=== PATIENT | female | born 1955 | race Caucasian/White ===

== ENCOUNTER 2017-06-03 07:21 | Emergency (ER) | payer OTHER ==
[~2017-06-03] VITALS: Ht 172.7 cm; Wt 99.8 kg
[2017-06-03 08:07] VITALS: BP 127/67
[2017-06-03] MEDS ORDERED: SODIUM CHLORIDE 0.9% 1,000 ML IV ONE ×2 (08:30→09:00)
[2017-06-03] MEDS ORDERED: InsuLIN REG 1unit/0.01ml Soln (100units/ml) IV ONE (08:30)
[2017-06-03] MEDS ORDERED: cefTRIAXone 1GM/50ML D5W 50 ML IV ONE (09:00)
[2017-06-03 09:07] LABS: Basophils # (auto) 0 uL; Basophils % (auto) 0.5 % (0.0-2.0); CONDITION Y; Eosinophils # (auto) 0.2 uL; Eosinophils % (auto) 2.8 % (0.0-7.0); Hemoglobin 14.6 g/dL (12.2-16.2); Lymphocytes # (auto) 2.3 uL; Lymphocytes % (auto) 32.7 % (10.0-50.0); Mean Corpuscular Hemoglobin 31.3 pg (28.0-32.0); Mean Corpuscular Volume 92.2 fL (80.0-100.0); Mean Platelet Volume 9.4 fL (7.4-10.4); Monocytes # (auto) 0.4 uL; Monocytes % (auto) 6.4 % (0.0-12.0); Neutrophils % (auto) 57.6 % (37.0-80.0); Platelet Count (auto) 254 10^3/uL (140-450); Red Cell Distribution Width 12.4 % (11.6-16.0); White Blood Cell 6.9 10^3/uL (4.4-10.8)
[2017-06-03 09:09] LABS: Urine Bilirubin Negative (Negative); Urine Blood TRACE /uL (Negative); Urine Color Yellow (Yellow); Urine Ketone Negative (Negative); Urine Nitrite Negative (Negative); Urine RBC 3 /hpf (0 - 4); Urine Squamous Epithelial Cell FEW /hpf (<5); Urine Urobilinogen Normal (Negative); Urine WBC Clumps PRESENT /hpf (None Seen)
[2017-06-03 09:11] LABS: Urine Glucose 4+ mg/dL (Normal)
[2017-06-03 09:13] LABS: Albumin 3.2 g/dL (3.4-5.0); BUN/Creatinine Ratio 11.4; Calcium 7.4 mg/dL (8.5-10.1); Potassium 3.5 mmol/L (3.5-5.1); Total Protein 7.1 g/dL (6.4-8.2)
[2017-06-03 09:16] LABS: INR 0.91 (0.9-1.15); Partial Thromboplastin Time 24.4 sec (22.64-33.71); Prothrombin Time 9.9 sec (9.37-12.3)
[2017-06-03 09:21] LABS: Bilirubin, Total 0.4 mg/dL (0.2-1.0)
== END 2017-06-03 10:14 | disposition home or self-care (01) ==
LOC: ER 07:34
DX: N39.0 Urinary tract infection, site not specified (principal); E11.65 Type 2 diabetes mellitus with hyperglycemia; Z90.710 Acquired absence of both cervix and uterus
CPT/HCPCS: 36415; 80053; 81001; 81002; 82962; 85025; 85610; 85730; 96361; 96365; 96375; 99284; J0696; J1815; J7030

== ENCOUNTER 2017-06-27 06:13 | Emergency (ER) | payer OTHER ==
[~2017-06-27] VITALS: Ht 172.7 cm; Wt 99.8 kg
[2017-06-27 06:54] LABS: Urine Bilirubin Negative (Negative); Urine Blood TRACE /uL (Negative); Urine Color Yellow (Yellow); Urine Glucose 4+ mg/dL (Normal); Urine Ketone Negative (Negative); Urine Mucus FEW (None Seen); Urine Nitrite Negative (Negative); Urine RBC 4 /hpf (0 - 4); Urine Squamous Epithelial Cell FEW /hpf (<5); Urine Urobilinogen Normal (Negative); Urine WBC Clumps PRESENT /hpf (None Seen)
[2017-06-27 07:25] VITALS: BP 156/93
[2017-06-27] MEDS ORDERED: LEVOFLOXACIN 750MG 150 ML IV ONE (07:30)
[2017-06-27] MEDS ORDERED: SODIUM CHLORIDE 0.9% 1,000 ML IV ONE (07:30)
[2017-06-27 07:46] LABS: Basophils # (auto) 0.1 uL; CONDITION Y; Eosinophils # (auto) 0.1 uL; Eosinophils % (auto) 1.9 % (0.0-7.0); Hematocrit 45.5 % (36.0-46.0); Hemoglobin 15.5 g/dL (12.2-16.2); Lymphocytes % (auto) 39.5 % (10.0-50.0); Mean Corpuscular Hemoglobin 31.6 pg (28.0-32.0); Mean Corpuscular Hgb Conc. 34.1 g/dL (32.0-36.0); Mean Corpuscular Volume 92.5 fL (80.0-100.0); Mean Platelet Volume 8.7 fL (7.4-10.4); Monocytes # (auto) 0.6 uL; Monocytes % (auto) 8.1 % (0.0-12.0); Neutrophils # (auto) 3.8 uL; Neutrophils % (auto) 49.5 % (37.0-80.0); Platelet Count (auto) 293 10^3/uL (140-450); Red Cell Distribution Width 12.6 % (11.6-16.0); White Blood Cell 7.6 10^3/uL (4.4-10.8)
[2017-06-27 08:10] LABS: Albumin 3.4 g/dL (3.4-5.0); BUN/Creatinine Ratio 14.8; Bilirubin, Total 0.3 mg/dL (0.2-1.0); Calcium 7.3 mg/dL (8.5-10.1); Potassium 3.9 mmol/L (3.5-5.1); Total Protein 7.9 g/dL (6.4-8.2)
[2017-06-27] MEDS ORDERED: DICYCLOMINE HCL (10MG/ML) 2 ML AMPULE IM ONE (08:30)
[2017-06-27] MEDS ORDERED: InsuLIN REG 1unit/0.01ml Soln (100units/ml) IV ONE (08:45)
== END 2017-06-27 09:21 | disposition home or self-care (01) ==
LOC: ER 06:13
DX: N39.0 Urinary tract infection, site not specified (principal); E11.65 Type 2 diabetes mellitus with hyperglycemia
CPT/HCPCS: 36415; 80053; 81001; 82962; 85025; 96365; 96375; 99284; J1815; J1956; J7030

== ENCOUNTER 2023-04-13 18:33 | Inpatient (IN) | payer MEDICARE, OTHER ==
[~2023-04-13] VITALS: Ht 165.1 cm; Wt 115.3 kg
[2023-04-13] MEDS ORDERED: SODIUM BICARBONATE 8.4% INJ 50ML SYRINGE ONE (18:57)
[2023-04-13] MEDS ORDERED: InsuLIN REG 1unit/0.01ml Soln (100units/ml) ONE (19:00)
[2023-04-13] MEDS ORDERED: EPINEPHrine HCL 250 ML IV ONE (19:10)
[2023-04-13] MEDS ORDERED: InsuLIN REG 1unit/0.01ml Soln (100units/ml) IV ONE (19:15)
[2023-04-13 19:37] LABS: Albumin 1.8 g/dL (3.4-5.0); Anion Gap 22 (5-15); Blood Urea Nitrogen 23 mg/dL (7-18); Calcium 7.6 mg/dL (8.5-10.1); Carbon Dioxide 12 mmol/L (21-32); Chloride 102 mmol/L (98-107); Glucose 274 mg/dL (74-106); Potassium 5.1 mmol/L (3.5-5.1); Sodium 136 mmol/L (136-145)
[2023-04-13 19:40] LABS: Alanine Aminotransferase 278 U/L (13-56); Alkaline Phosphatase 78 U/L (45-117); Aspartate Aminotransferase 666 U/L (15-37); BUN/Creatinine Ratio 9.2 (10.0-20.0); Bilirubin, Total 0.4 mg/dL (0.2-1.0); GFR African American 25 mL/min; GFR Non-African American 21 mL/min; Total Protein 5.4 g/dL (6.4-8.2)
[2023-04-13] MEDS: EPINEPHrine HCL 250 ML IV SCH (19:40)
[2023-04-13] MEDS: DOPamine 1600MCG/ML D5W 250 ML IV SCH ×2 (19:50→22:11)
[2023-04-13 19:53] LABS: Basophils # (auto) 0.2 10 ^3/uL (0-0.2); Basophils % (auto) 1.3 % (0.0-2.0); Eosinophils # (auto) 0.2 10 ^3/uL (0-0.8); Hematocrit 33.4 % (36.0-46.0); Hemoglobin 10.1 g/dL (12.2-16.2); Lymphocytes # (auto) 8.7 10 ^3/uL (0.4-5.4); Lymphocytes % (auto) 48.2 % (10.0-50.0); Magnesium < 0.3 mg/dL (1.6-2.6); Mean Corpuscular Hgb Conc. 30.1 g/dL (32.0-36.0); Mean Corpuscular Volume 102.9 fL (80.0-100.0); Monocytes # (auto) 1.6 10 ^3/uL (0-1.3); Monocytes % (auto) 8.9 % (0.0-12.0); Neutrophils # (auto) 7.3 10 ^3/uL (1.6-8.6); Neutrophils % (auto) 40.6 % (37.0-80.0); Nucleated Red Blood Cells % 0.3 %; Red Blood Cells 3.24 10^6/uL (4.0-5.20); Red Cell Distribution Width 14.6 % (11.8-14.3); White Blood Cell 18.1 10^3/uL (4.4-10.8)
[2023-04-13 20:12] LABS: INR 1.26 (0.9-1.15); Partial Thromboplastin Time 36.6 SEC (24.5-34.5)
[2023-04-13] MEDS ORDERED: SODIUM CHLORIDE 0.9% 2,000 ML IV ONE (20:30)
[2023-04-13] MEDS: MAGNESIUM SULFATE 1GM/100ML 100 ML IV SCH ×4 (20:57→22:26)
[2023-04-13] MEDS ORDERED: SODIUM BICARBONATE 8.4 % INJ 50ML VIAL IV ONE (21:30)
[2023-04-13 21:42] VITALS: BP 86/31
[2023-04-14] VITALS (23 sets, daily range): BP systolic 87–156; BP diastolic 32–86
[2023-04-14] LABS: Urine Bacteria FEW /hpf (None Seen); Urine Blood 2+ /uL (Negative); Urine Hyaline Cast MOD /lpf (0 - 2); Urine Mucus FEW (None Seen); Urine Specific Gravity 1.017 (1.001-1.035); Urine WBC 1911 /hpf (0 - 5); Urine WBC Clumps PRESENT /hpf (None Seen)
[2023-04-14] MEDS ORDERED: IBUPROFEN 100MG/5ML ORAL SUSP 100 MG/5 ML UD NG PRN (00:30)
[2023-04-14] MEDS ORDERED: DEXTROSE (50%) 50ML SYRG IV PRN ×2 (00:30→05:45)
[2023-04-14] MEDS ORDERED: HEPARIN SODIUM (PORCINE) 5000 UNITS/ML 1ML VIAL IV ONE (00:30)
[2023-04-14] MEDS: MAGNESIUM SULFATE 1GM/100ML 100 ML IV SCH ×2 (00:30→00:31)
[2023-04-14] MEDS ORDERED: ONDANSETRON HCL 4 MG/2 ML VIAL IV PRN (00:30)
[2023-04-14] MEDS ORDERED: ALBUMIN 25% 100 ML IV ONE (00:30)
[2023-04-14] MEDS ORDERED: VANCOMYCIN PER PHARMACY 0 MG IV SCH (00:30)
[2023-04-14] MEDS ORDERED: SODIUM CHLORIDE 0.9% 1,000 ML IV SCH (00:30)
[2023-04-14] MEDS ORDERED: LACTATED RINGER'S 1,000 ML IV ONE (00:45)
[2023-04-14] MEDS ORDERED: SODIUM BICARBONATE 8.4 % INJ 50ML VIAL IV ONE ×2 (00:45→23:49)
[2023-04-14] MEDS ORDERED: PIPERACILLIN-TAZOB 3.375GM 100 ML IV ONE (00:45)
[2023-04-14] MEDS ORDERED: VANCOMYCIN 1GM/250ML 250 ML IV ONE ×2 (00:45→01:00)
[2023-04-14] MEDS: DOPamine 1600MCG/ML D5W 250 ML IV SCH ×3 (00:57→06:46)
[2023-04-14] MEDS ORDERED: NITROGLYCERIN 0.4 MG SL TAB SL PRN (01:45)
[2023-04-14] MEDS ORDERED: MORPHINE SULFATE INJ 2 MG/ml SYRG IV PRN (01:45)
[2023-04-14] MEDS ORDERED: NOREPINEPHRINE 8 MG/250ML KIT 250 ML IV ONE (02:02)
[2023-04-14] MEDS ORDERED: DexAMETHasone SOD PHOS 10MG/1ML VIAL INJ IV ONE (02:15)
[2023-04-14] MEDS: NOREPINEPHRINE 8 MG/250ML KIT 250 ML IV SCH ×2 (02:32→21:35)
[2023-04-14 03:41] LABS: Lactic Acid w/Reflex 8.5 mmol/L (0.4-2.0)
[2023-04-14] MEDS ORDERED: ACCU-CHEK COMFORT CURVE STRIP VI SCH (04:00)
[2023-04-14] MEDS ORDERED: InsuLIN REG 1unit/0.01ml Soln (100units/ml) SC SCH (04:00)
[2023-04-14 05:11] LABS: Hematocrit 38.2 % (36.0-46.0); Hemoglobin 11.9 g/dL (12.2-16.2); Mean Corpuscular Hemoglobin 31.4 pg (28.0-32.0); Mean Corpuscular Hgb Conc. 31.3 g/dL (32.0-36.0); Mean Corpuscular Volume 100.4 fL (80.0-100.0); Red Blood Cells 3.81 10^6/uL (4.0-5.20); Red Cell Distribution Width 14.1 % (11.8-14.3); White Blood Cell 22.4 10^3/uL (4.4-10.8)
[2023-04-14 05:22] LABS: Albumin 2.6 g/dL (3.4-5.0); Calcium 8.3 mg/dL (8.5-10.1); Potassium 4.9 mmol/L (3.5-5.1)
[2023-04-14 05:34] LABS: Total Protein 6.8 g/dL (6.4-8.2)
[2023-04-14] MEDS ORDERED: InsuLIN REG 1unit/0.01ml Soln (100units/ml) ONE (05:43)
[2023-04-14] MEDS ORDERED: INSULIN LANTUS (GLARGINE) 1 /0.01ml (100units/ml) SC ONE (05:45)
[2023-04-14] MEDS ORDERED: InsuLIN R (HUMAN) 100 UNITS in SODIUM CHL 0.9% 99 ML IV SCH (05:45)
[2023-04-14] MEDS: ACCU-CHEK COMFORT CURVE STRIP VI SCH ×12 (05:54→22:49)
[2023-04-14 06:05] LABS: Basophils % (manual) 0 (0.0-2.0); Blast Cells 0; Eosinophils % (manual) 0 (0-7); Promyelocytes % 0; Reactive Lymphocytes 0
[2023-04-14] MEDS: EPINEPHrine HCL 250 ML IV SCH (06:46)
[2023-04-14] MEDS ORDERED: SODIUM BICARBONATE 50ML VIAL 50 ML in SOD CHL 0.45% 1,000 ML IV SCH ×2 (07:15→23:45)
[2023-04-14] MEDS: FAMOTIDINE (10MG/ML) 2ML VL IV SCH ×2 (10:14→22:32)
[2023-04-14] MEDS: HEPARIN SODIUM (PORCINE) 5000 UNITS/ML 1ML VIAL SC SCH ×2 (10:19→22:34)
[2023-04-14 10:29] LABS: Band Neutrophils % (manual) 16; Lymphocytes % (manual) 18 (10.0-50.0); Metamyelocytes % 2; Monocytes % (manual) 7 (0-12); Myelocytes % 1
[2023-04-14] MEDS ORDERED: FUROSEMIDE INJECTION 100 MG in SODIUM CHL 0.9% 100 ML IV SCH (11:30)
[2023-04-14 12:19] LABS: Magnesium 4.5 mg/dL (1.6-2.6)
[2023-04-14] MEDS ORDERED: CLINIMIX PER PHARMACY 0 ML IV SCH (12:30)
[2023-04-14] MEDS: SUCRALFATE 1 GM/10 ML ORAL SUSP GT SCH ×3 (12:57→22:32)
[2023-04-14] MEDS: FUROSEMIDE INJECTION 100 MG in SODIUM CHL 0.9% 100 ML IV SCH ×2 (13:41→23:09)
[2023-04-14] MEDS: CALCIUM GLUC 1,000mg/50ml-NS 50 ML IV SCH ×2 (13:54→14:27)
[2023-04-14] MEDS: InsuLIN R (HUMAN) 100 UNITS in SODIUM CHL 0.9% 99 ML IV SCH (16:47)
[2023-04-14] MEDS ORDERED: SODIUM BICARBONATE 50ML VIAL 150 ML in D5W 5% 1,000 ML IV SCH (17:15)
[2023-04-14] MEDS ORDERED: ATORVASTATIN 20 MG TAB PO SCH (22:00)
[2023-04-15] VITALS (102 sets, daily range): BP systolic 84–162; BP diastolic 7–95
[2023-04-15] MEDS: ACCU-CHEK COMFORT CURVE STRIP VI SCH ×17 (00:10→23:58)
[2023-04-15] MEDS ORDERED: FLUC200T50 PO (01:19)
[2023-04-15] MEDS ORDERED: HYDR5TAB PO (01:19)
[2023-04-15] MEDS ORDERED: RANO500G PO (01:19)
[2023-04-15] MEDS ORDERED: ATO40T PO (01:19)
[2023-04-15] MEDS ORDERED: LEVO50TA7 PO (01:19)
[2023-04-15] MEDS ORDERED: INSU100I70 SC (01:19)
[2023-04-15 03:59] LABS: Lactic Acid w/Reflex 2.5 mmol/L (0.4-2.0)
[2023-04-15 04:00] LABS: Calcium 7.4 mg/dL (8.5-10.1); Potassium 3.9 mmol/L (3.5-5.1)
[2023-04-15 04:06] LABS: Albumin 2.1 g/dL (3.4-5.0); BUN/Creatinine Ratio 10.3 (10.0-20.0); Bilirubin, Total 0.5 mg/dL (0.2-1.0); Magnesium 3.6 mg/dL (1.6-2.6); Total Protein 5.6 g/dL (6.4-8.2)
[2023-04-15] MEDS: SUCRALFATE 1 GM/10 ML ORAL SUSP GT SCH ×4 (06:35→21:51)
[2023-04-15 06:42] LABS: Basophils # (auto) 0.1 10 ^3/uL (0-0.2); Eosinophils # (auto) 0 10 ^3/uL (0-0.8); Eosinophils % (auto) 0.1 % (0.0-7.0); Lymphocytes # (auto) 1.5 10 ^3/uL (0.4-5.4); White Blood Cell 14.6 10^3/uL (4.4-10.8)
[2023-04-15] MEDS ORDERED: POTASSIUM CHLORIDE 40 MEQ, LIDOCAINE 1% (LOCAL ANESTH.) 4 ML in SODIUM CHL 0.9% 250 ML IV ONE (06:45)
[2023-04-15 06:50] LABS: Basophils % (auto) 0.7 % (0.0-2.0); Hematocrit 28.3 % (36.0-46.0); Hemoglobin 9.5 g/dL (12.2-16.2); Lymphocytes % (auto) 10.3 % (10.0-50.0); Mean Corpuscular Hemoglobin 31.1 pg (28.0-32.0); Mean Corpuscular Hgb Conc. 33.7 g/dL (32.0-36.0); Mean Corpuscular Volume 92.2 fL (80.0-100.0); Monocytes # (auto) 0.8 10 ^3/uL (0-1.3); Monocytes % (auto) 5.7 % (0.0-12.0); Neutrophils # (auto) 12.2 10 ^3/uL (1.6-8.6); Neutrophils % (auto) 83.2 % (37.0-80.0); Nucleated Red Blood Cells % 0.2 %; Red Blood Cells 3.07 10^6/uL (4.0-5.20); Red Cell Distribution Width 13.4 % (11.8-14.3)
[2023-04-15] MEDS ORDERED: HEPARIN DRIP/D5W 100UNITS/ML 250 ML IV SCH (07:00)
[2023-04-15] MEDS ORDERED: HEPARIN SODIUM (PORCINE) 5000 UNITS/ML 1ML VIAL IV ONE (07:00)
[2023-04-15] MEDS: DOPamine 1600MCG/ML D5W 250 ML IV SCH ×2 (08:03→19:44)
[2023-04-15] MEDS: FUROSEMIDE INJECTION 100 MG in SODIUM CHL 0.9% 100 ML IV SCH ×2 (08:11→19:26)
[2023-04-15] MEDS: INSULIN LANTUS (GLARGINE) 1 /0.01ml (100units/ml) SC SCH ×2 (08:37→10:33)
[2023-04-15 08:38] LABS: INR 1.17 (0.9-1.15); Partial Thromboplastin Time 33.6 SEC (24.5-34.5)
[2023-04-15] MEDS: CEFEPIME 1GM/ 50ML 50 ML IV SCH (09:25)
[2023-04-15] MEDS ORDERED: ASPirin 81 mg TAB PO SCH (10:00)
[2023-04-15] MEDS ORDERED: ARGATROBAN 250 MG in SODIUM CHL 0.9% 248.5 ML IV SCH (10:15)
[2023-04-15] MEDS: FAMOTIDINE (10MG/ML) 2ML VL IV SCH ×2 (10:28→21:51)
[2023-04-15] MEDS ORDERED: ARGATROBAN 250 MG in SODIUM CHL 0.9% 247.5 ML IV SCH ×4 (11:00→22:30)
[2023-04-15] MEDS ORDERED: VANCOMYCIN 1GM/250ML 250 ML IV ONE (12:00)
[2023-04-15] MEDS ORDERED: CLINIMIX PER PHARMACY 0 ML IV SCH (12:00)
[2023-04-15] MEDS: InsuLIN R (HUMAN) 100 UNITS in SODIUM CHL 0.9% 99 ML IV SCH (13:06)
[2023-04-15 13:39] LABS: INR 1.39 (0.9-1.15); Partial Thromboplastin Time 59.1 SEC (24.5-34.5)
[2023-04-15] MEDS ORDERED: HYDROCORTISONE SOD SUCC 100 MG/2ML INJ VIAL IV ONE (15:45)
[2023-04-15 18:20] LABS: INR 2.04 (0.9-1.15); Partial Thromboplastin Time 61.6 SEC (24.5-34.5)
[2023-04-15] MEDS: NYSTATIN TOPICAL POWDER 15GM TOP SCH ×2 (18:23→21:51)
[2023-04-15] MEDS ORDERED: DOPamine 1600mCg/ml 400MG/250ml NSorD5 KIT/BAG IV ONE (20:08)
[2023-04-15] MEDS ORDERED: LIDOCAINE HCL 100 MG/5ML (2%) SYRG INJ IV ONE (20:08)
[2023-04-15] MEDS ORDERED: EPINEPHrine HCL 1 MG/10 ML SYRG IV ONE (20:08)
[2023-04-15] MEDS ORDERED: SODIUM BICARBONATE 8.4% INJ 50ML SYRINGE IV ONE (20:10)
[2023-04-15] MEDS: EPINEPHrine HCL 250 ML IV SCH (20:45)
[2023-04-15] MEDS: HYDROCORTISONE SOD SUCC 100 MG/2ML INJ VIAL IV SCH (21:51)
[2023-04-15 22:12] LABS: INR 2.37 (0.9-1.15); Partial Thromboplastin Time 66.6 SEC (24.5-34.5)
[2023-04-15] MEDS ORDERED: InsuLIN R (HUMAN) 100 UNITS in SODIUM CHL 0.9% 99 ML IV SCH (22:45)
[2023-04-16] VITALS (101 sets, daily range): BP systolic 77–147; BP diastolic 42–90
[2023-04-16] MEDS: ACCU-CHEK COMFORT CURVE STRIP VI SCH ×12 (01:32→23:56)
[2023-04-16] MEDS: NOREPINEPHRINE 8 MG/250ML KIT 250 ML IV SCH ×3 (02:30→15:15)
[2023-04-16 04:18] LABS: Basophils # (auto) 0.1 10 ^3/uL (0-0.2); Basophils % (auto) 0.4 % (0.0-2.0); Eosinophils # (auto) 0 10 ^3/uL (0-0.8); Hematocrit 26.3 % (36.0-46.0); Lymphocytes # (auto) 1.1 10 ^3/uL (0.4-5.4); Lymphocytes % (auto) 7.5 % (10.0-50.0); Mean Corpuscular Hemoglobin 31.4 pg (28.0-32.0); Mean Corpuscular Hgb Conc. 34.2 g/dL (32.0-36.0); Mean Corpuscular Volume 91.9 fL (80.0-100.0); Monocytes % (auto) 6.4 % (0.0-12.0); Neutrophils % (auto) 85.7 % (37.0-80.0); Nucleated Red Blood Cells % 0.2 %; Red Blood Cells 2.86 10^6/uL (4.0-5.20); Red Cell Distribution Width 13.6 % (11.8-14.3); White Blood Cell 15.2 10^3/uL (4.4-10.8)
[2023-04-16 04:41] LABS: Albumin 1.9 g/dL (3.4-5.0); BUN/Creatinine Ratio 11.3 (10.0-20.0); Calcium 6.5 mg/dL (8.5-10.1); Potassium 3.8 mmol/L (3.5-5.1)
[2023-04-16 04:44] LABS: Bilirubin, Total 0.4 mg/dL (0.2-1.0); Total Protein 5.7 g/dL (6.4-8.2)
[2023-04-16] MEDS: InsuLIN R (HUMAN) 100 UNITS in SODIUM CHL 0.9% 99 ML IV SCH ×2 (04:53→11:14)
[2023-04-16] MEDS: SUCRALFATE 1 GM/10 ML ORAL SUSP GT SCH ×4 (05:47→22:13)
[2023-04-16] MEDS: FUROSEMIDE INJECTION 100 MG in SODIUM CHL 0.9% 100 ML IV SCH ×2 (05:48→15:15)
[2023-04-16] MEDS: DOPamine 1600MCG/ML D5W 250 ML IV SCH ×2 (07:35→19:21)
[2023-04-16 09:40] LABS: INR 3.29 (0.9-1.15); Partial Thromboplastin Time 58.3 SEC (24.5-34.5)
[2023-04-16] MEDS ORDERED: ARGATROBAN 250 MG in SODIUM CHL 0.9% 247.5 ML IV SCH ×3 (10:30→21:45)
[2023-04-16] MEDS: INSULIN LANTUS (GLARGINE) 1 /0.01ml (100units/ml) SC SCH ×2 (10:59→11:09)
[2023-04-16] MEDS: HYDROCORTISONE SOD SUCC 100 MG/2ML INJ VIAL IV SCH ×2 (11:08→22:13)
[2023-04-16] MEDS: FAMOTIDINE (10MG/ML) 2ML VL IV SCH ×2 (11:09→22:13)
[2023-04-16] MEDS: NYSTATIN TOPICAL POWDER 15GM TOP SCH ×2 (11:09→22:13)
[2023-04-16] MEDS: CEFEPIME 1GM/ 50ML 50 ML IV SCH (11:09)
[2023-04-16 14:31] LABS: Urine Bacteria FEW /hpf (None Seen); Urine Blood 3+ /uL (Negative); Urine Mucus FEW (None Seen); Urine Specific Gravity 1.008 (1.001-1.035); Urine WBC 36 /hpf (0 - 5)
[2023-04-16] MEDS ORDERED: CLINIMIX PER PHARMACY 0 ML IV SCH (16:15)
[2023-04-16 16:21] LABS: INR 3.52 (0.9-1.15)
[2023-04-16] MEDS: InsuLIN REG 1unit/0.01ml Soln (100units/ml) SC SCH ×3 (16:21→23:58)
[2023-04-16 16:29] LABS: Partial Thromboplastin Time 96.3 SEC (24.5-34.5)
[2023-04-16] MEDS ORDERED: AMINO ACID INFUSION IN D10W 1,000 ML IV NR (20:00)
[2023-04-16] MEDS: EPINEPHrine HCL 250 ML IV SCH (20:45)
[2023-04-16 21:17] LABS: INR 3.56 (0.9-1.15)
[2023-04-16 21:19] LABS: Partial Thromboplastin Time 95.9 SEC (24.5-34.5)
[2023-04-17] VITALS (104 sets, daily range): BP systolic 86–187; BP diastolic 44–87
[2023-04-17 02:52] LABS: INR 6.4 (0.9-1.15); Partial Thromboplastin Time 127.6 SEC (24.5-34.5)
[2023-04-17] MEDS: ACCU-CHEK COMFORT CURVE STRIP VI SCH ×5 (04:04→19:49)
[2023-04-17] MEDS: InsuLIN REG 1unit/0.01ml Soln (100units/ml) SC SCH ×5 (04:06→20:05)
[2023-04-17 04:18] LABS: Eosinophils # (auto) 0 10 ^3/uL (0-0.8); Hemoglobin 8.4 g/dL (12.2-16.2); Lymphocytes % (auto) 5.6 % (10.0-50.0); Mean Corpuscular Hemoglobin 31.3 pg (28.0-32.0); Mean Corpuscular Hgb Conc. 33.5 g/dL (32.0-36.0); Nucleated Red Blood Cells % 0.3 %; Red Blood Cells 2.68 10^6/uL (4.0-5.20)
[2023-04-17 04:22] LABS: Basophils # (auto) 0.1 10 ^3/uL (0-0.2); Basophils % (auto) 0.5 % (0.0-2.0); Hematocrit 24.9 % (36.0-46.0); Mean Corpuscular Volume 93.2 fL (80.0-100.0); Monocytes % (auto) 5.5 % (0.0-12.0); Neutrophils # (auto) 15.5 10 ^3/uL (1.6-8.6); Neutrophils % (auto) 88.4 % (37.0-80.0); Red Cell Distribution Width 13.8 % (11.8-14.3); White Blood Cell 17.5 10^3/uL (4.4-10.8)
[2023-04-17 04:43] LABS: Albumin 1.7 g/dL (3.4-5.0); Calcium 6.5 mg/dL (8.5-10.1); Magnesium 3.4 mg/dL (1.6-2.6)
[2023-04-17 04:44] LABS: Bilirubin, Total 0.4 mg/dL (0.2-1.0); Phosphorus 6.2 mg/dL (2.5-4.90); Total Protein 5.6 g/dL (6.4-8.2)
[2023-04-17] MEDS: SUCRALFATE 1 GM/10 ML ORAL SUSP GT SCH ×4 (05:47→21:50)
[2023-04-17] MEDS: DOPamine 1600MCG/ML D5W 250 ML IV SCH ×2 (05:50→18:02)
[2023-04-17] MEDS: FAMOTIDINE (10MG/ML) 2ML VL IV SCH ×2 (08:54→21:50)
[2023-04-17] MEDS: CEFEPIME 1GM/ 50ML 50 ML IV SCH (08:54)
[2023-04-17] MEDS: HYDROCORTISONE SOD SUCC 100 MG/2ML INJ VIAL IV SCH ×2 (08:54→21:50)
[2023-04-17] MEDS: NYSTATIN TOPICAL POWDER 15GM TOP SCH ×2 (08:55→21:50)
[2023-04-17] MEDS: INSULIN LANTUS (GLARGINE) 1 /0.01ml (100units/ml) SC SCH (09:07)
[2023-04-17 10:18] LABS: INR 1.69 (0.9-1.15); Partial Thromboplastin Time 62.3 SEC (24.5-34.5)
[2023-04-17] MEDS ORDERED: ARGATROBAN 250 MG in SODIUM CHL 0.9% 247.5 ML IV SCH (10:45)
[2023-04-17] MEDS: NOREPINEPHRINE 8 MG/250ML KIT 250 ML IV SCH (15:15)
[2023-04-17 15:52] LABS: INR 2.92 (0.9-1.15)
[2023-04-17 16:12] LABS: Partial Thromboplastin Time 93.7 SEC (24.5-34.5)
[2023-04-17] MEDS: ARGATROBAN 250 MG in SODIUM CHL 0.9% 247.5 ML IV SCH (16:27)
[2023-04-17] MEDS ORDERED: AMINO ACID INFUSION IN D10W 1,000 ML IV NR (20:00)
[2023-04-17 21:49] LABS: INR 1.77 (0.9-1.15)
[2023-04-17 21:52] LABS: Partial Thromboplastin Time 71.9 SEC (24.5-34.5)
[2023-04-18] VITALS (107 sets, daily range): BP systolic 89–141; BP diastolic 51–76
[2023-04-18] MEDS: InsuLIN REG 1unit/0.01ml Soln (100units/ml) SC SCH ×6 (00:05→20:09)
[2023-04-18 01:35] LABS: INR 1.69 (0.9-1.15); Partial Thromboplastin Time 62.1 SEC (24.5-34.5)
[2023-04-18 04:05] LABS: Hematocrit 24.9 % (36.0-46.0); Hemoglobin 8.4 g/dL (12.2-16.2)
[2023-04-18 04:08] LABS: Mean Corpuscular Hemoglobin 31.8 pg (28.0-32.0); Mean Corpuscular Hgb Conc. 33.8 g/dL (32.0-36.0); Red Blood Cells 2.65 10^6/uL (4.0-5.20); White Blood Cell 29.2 10^3/uL (4.4-10.8)
[2023-04-18 04:15] LABS: Basophils % (manual) 0 (0.0-2.0); Blast Cells 0; Metamyelocytes % 0; Promyelocytes % 0; Reactive Lymphocytes 0
[2023-04-18 04:19] LABS: Potassium 4.4 mmol/L (3.5-5.1)
[2023-04-18] MEDS: ACCU-CHEK COMFORT CURVE STRIP VI SCH ×7 (04:23→23:55)
[2023-04-18 04:28] LABS: Albumin 1.7 g/dL (3.4-5.0); BUN/Creatinine Ratio 15.3 (10.0-20.0); Bilirubin, Total 0.3 mg/dL (0.2-1.0); Calcium 6.4 mg/dL (8.5-10.1); Magnesium 3.8 mg/dL (1.6-2.6)
[2023-04-18] MEDS: SUCRALFATE 1 GM/10 ML ORAL SUSP GT SCH ×4 (05:53→22:08)
[2023-04-18 06:05] LABS: Band Neutrophils % (manual) 6; Eosinophils % (manual) 1 (0-7); Lymphocytes % (manual) 11 (10.0-50.0); Monocytes % (manual) 7 (0-12); Myelocytes % 2
[2023-04-18] MEDS: DOPamine 1600MCG/ML D5W 250 ML IV SCH ×2 (06:39→18:25)
[2023-04-18 06:50] LABS: INR 1.86 (0.9-1.15)
[2023-04-18 07:07] LABS: Partial Thromboplastin Time 73.6 SEC (24.5-34.5)
[2023-04-18] MEDS: EPINEPHrine HCL 250 ML IV SCH ×2 (07:42→20:11)
[2023-04-18] MEDS: CEFEPIME 1GM/ 50ML 50 ML IV SCH (08:03)
[2023-04-18] MEDS: HYDROCORTISONE SOD SUCC 100 MG/2ML INJ VIAL IV SCH ×2 (08:03→22:08)
[2023-04-18] MEDS: NYSTATIN TOPICAL POWDER 15GM TOP SCH ×2 (08:03→22:08)
[2023-04-18] MEDS: FAMOTIDINE (10MG/ML) 2ML VL IV SCH ×2 (08:03→22:07)
[2023-04-18] MEDS: INSULIN LANTUS (GLARGINE) 1 /0.01ml (100units/ml) SC SCH (08:09)
[2023-04-18] MEDS: ARGATROBAN 250 MG in SODIUM CHL 0.9% 247.5 ML IV SCH (10:20)
[2023-04-18 10:56] LABS: INR 1.95 (0.9-1.15)
[2023-04-18] MEDS ORDERED: TPN PER PHARMACY 0 ML IV SCH (11:00)
[2023-04-18 11:01] LABS: Partial Thromboplastin Time 85.1 SEC (24.5-34.5)
[2023-04-18] MEDS: NOREPINEPHRINE 8 MG/250ML KIT 250 ML IV SCH (15:15)
[2023-04-18 15:29] LABS: INR 2.23 (0.9-1.15)
[2023-04-18 15:35] LABS: Partial Thromboplastin Time 85.3 SEC (24.5-34.5)
[2023-04-18] MEDS ORDERED: SODIUM CHLORIDE IV NR ×9 (20:00)
[2023-04-18] MEDS ORDERED: CALCIUM GLUC IV NR ×9 (20:00)
[2023-04-18] MEDS ORDERED: SODIUM ACETATE IV NR ×9 (20:00)
[2023-04-18] MEDS ORDERED: [UNRECOGNIZED DRUG - OTHER] IV NR ×9 (20:00)
[2023-04-18 21:09] LABS: INR 2.17 (0.9-1.15)
[2023-04-18 21:47] LABS: Partial Thromboplastin Time 72.6 SEC (24.5-34.5)
[2023-04-19] VITALS (106 sets, daily range): BP systolic 96–148; BP diastolic 51–74
[2023-04-19 03:33] LABS: Red Cell Distribution Width 13.9 % (11.8-14.3)
[2023-04-19 03:36] LABS: Hematocrit 24.7 % (36.0-46.0); Hemoglobin 8.3 g/dL (12.2-16.2); Mean Corpuscular Hemoglobin 31.1 pg (28.0-32.0); Mean Corpuscular Hgb Conc. 33.6 g/dL (32.0-36.0); Mean Corpuscular Volume 92.5 fL (80.0-100.0); Red Blood Cells 2.66 10^6/uL (4.0-5.20)
[2023-04-19 03:42] LABS: Basophils % (manual) 0 (0.0-2.0); Blast Cells 0; Eosinophils % (manual) 0 (0-7); Promyelocytes % 0; Reactive Lymphocytes 0
[2023-04-19 03:47] LABS: Albumin 1.6 g/dL (3.4-5.0); Calcium 6.2 mg/dL (8.5-10.1); Magnesium 3.8 mg/dL (1.6-2.6); Potassium 4.7 mmol/L (3.5-5.1)
[2023-04-19 03:49] LABS: BUN/Creatinine Ratio 17.3 (10.0-20.0)
[2023-04-19 03:52] LABS: Bilirubin, Total 0.3 mg/dL (0.2-1.0); Phosphorus 8.4 mg/dL (2.5-4.90); Total Protein 5.9 g/dL (6.4-8.2)
[2023-04-19] MEDS: ACCU-CHEK COMFORT CURVE STRIP VI SCH ×6 (04:02→23:37)
[2023-04-19 04:12] LABS: INR 2.23 (0.9-1.15); Partial Thromboplastin Time 61.2 SEC (24.5-34.5)
[2023-04-19] MEDS: InsuLIN REG 1unit/0.01ml Soln (100units/ml) SC SCH ×7 (04:20→23:39)
[2023-04-19] MEDS ORDERED: ARGATROBAN 250 MG in SODIUM CHL 0.9% 247.5 ML IV SCH ×3 (05:12→15:45)
[2023-04-19] MEDS: SUCRALFATE 1 GM/10 ML ORAL SUSP GT SCH ×4 (05:53→21:46)
[2023-04-19] MEDS: DOPamine 1600MCG/ML D5W 250 ML IV SCH ×2 (05:53→17:57)
[2023-04-19 07:36] LABS: Band Neutrophils % (manual) 7; Lymphocytes % (manual) 10 (10.0-50.0); Metamyelocytes % 2; Monocytes % (manual) 9 (0-12); Myelocytes % 2
[2023-04-19 09:27] LABS: INR 2.3 (0.9-1.15); Partial Thromboplastin Time 67.2 SEC (24.5-34.5)
[2023-04-19] MEDS: NYSTATIN TOPICAL POWDER 15GM TOP SCH ×2 (09:44→21:46)
[2023-04-19] MEDS: FAMOTIDINE (10MG/ML) 2ML VL IV SCH ×2 (09:44→21:46)
[2023-04-19] MEDS: HYDROCORTISONE SOD SUCC 100 MG/2ML INJ VIAL IV SCH ×2 (09:44→21:46)
[2023-04-19] MEDS: CEFEPIME 1GM/ 50ML 50 ML IV SCH (09:44)
[2023-04-19] MEDS: INSULIN LANTUS (GLARGINE) 1 /0.01ml (100units/ml) SC SCH (09:52)
[2023-04-19] MEDS: NOREPINEPHRINE 8 MG/250ML KIT 250 ML IV SCH (15:15)
[2023-04-19 15:19] LABS: INR 2.41 (0.9-1.15); Partial Thromboplastin Time 66.9 SEC (24.5-34.5)
[2023-04-19 19:39] LABS: INR 3.02 (0.9-1.15)
[2023-04-19] MEDS ORDERED: [UNRECOGNIZED DRUG - OTHER] IV NR ×9 (20:00)
[2023-04-19] MEDS ORDERED: CALCIUM GLUC IV NR ×9 (20:00)
[2023-04-19] MEDS ORDERED: SODIUM CHLORIDE IV NR ×9 (20:00)
[2023-04-19] MEDS ORDERED: SODIUM ACETATE IV NR ×9 (20:00)
[2023-04-19 20:03] LABS: Partial Thromboplastin Time 79.7 SEC (24.5-34.5)
[2023-04-19] MEDS: EPINEPHrine HCL 250 ML IV SCH (20:45)
[2023-04-19 23:12] LABS: INR 3.26 (0.9-1.15)
[2023-04-19 23:22] LABS: Partial Thromboplastin Time 93.9 SEC (24.5-34.5)
[2023-04-20] VITALS (105 sets, daily range): BP systolic 80–132; BP diastolic 37–77
[2023-04-20 03:41] LABS: Hemoglobin 7.5 g/dL (12.2-16.2)
[2023-04-20 03:43] LABS: Hematocrit 22.9 % (36.0-46.0); Mean Corpuscular Hemoglobin 30.9 pg (28.0-32.0); Mean Corpuscular Hgb Conc. 32.9 g/dL (32.0-36.0); Mean Corpuscular Volume 93.9 fL (80.0-100.0); Red Blood Cells 2.44 10^6/uL (4.0-5.20); Red Cell Distribution Width 14.4 % (11.8-14.3); White Blood Cell 24.3 10^3/uL (4.4-10.8)
[2023-04-20 03:53] LABS: Band Neutrophils % (manual) 0; Basophils % (manual) 0 (0.0-2.0); Blast Cells 0; Eosinophils % (manual) 0 (0-7); Promyelocytes % 0; Reactive Lymphocytes 0
[2023-04-20 04:23] LABS: Potassium 4.8 mmol/L (3.5-5.1)
[2023-04-20 04:26] LABS: Albumin 1.5 g/dL (3.4-5.0); BUN/Creatinine Ratio 19.2 (10.0-20.0); Calcium 6.1 mg/dL (8.5-10.1); Magnesium 3.8 mg/dL (1.6-2.6)
[2023-04-20 04:36] LABS: Bilirubin, Total 0.3 mg/dL (0.2-1.0); Total Protein 5.8 g/dL (6.4-8.2)
[2023-04-20 04:49] LABS: INR 3.63 (0.9-1.15)
[2023-04-20 04:50] LABS: Partial Thromboplastin Time 91.1 SEC (24.5-34.5)
[2023-04-20] MEDS: ACCU-CHEK COMFORT CURVE STRIP VI SCH ×5 (05:05→20:40)
[2023-04-20] MEDS: DOPamine 1600MCG/ML D5W 250 ML IV SCH ×2 (05:06→15:34)
[2023-04-20] MEDS: InsuLIN REG 1unit/0.01ml Soln (100units/ml) SC SCH ×5 (05:06→20:41)
[2023-04-20 05:17] LABS: Phosphorus 8.9 mg/dL (2.5-4.90)
[2023-04-20 05:51] LABS: Lymphocytes % (manual) 10 (10.0-50.0); Metamyelocytes % 2; Monocytes % (manual) 4 (0-12); Myelocytes % 3
[2023-04-20] MEDS: SUCRALFATE 1 GM/10 ML ORAL SUSP GT SCH ×4 (05:59→21:33)
[2023-04-20] MEDS: CEFEPIME 1GM/ 50ML 50 ML IV SCH (09:51)
[2023-04-20] MEDS: HYDROCORTISONE SOD SUCC 100 MG/2ML INJ VIAL IV SCH ×2 (09:52→21:33)
[2023-04-20] MEDS: FAMOTIDINE (10MG/ML) 2ML VL IV SCH ×2 (09:52→21:33)
[2023-04-20] MEDS: INSULIN LANTUS (GLARGINE) 1 /0.01ml (100units/ml) SC SCH (09:53)
[2023-04-20] MEDS: NYSTATIN TOPICAL POWDER 15GM TOP SCH ×2 (09:54→22:00)
[2023-04-20 09:55] LABS: INR 3.2 (0.9-1.15)
[2023-04-20] MEDS: ARGATROBAN 250 MG in SODIUM CHL 0.9% 247.5 ML IV SCH (10:15)
[2023-04-20 14:43] LABS: INR 3.56 (0.9-1.15)
[2023-04-20 14:44] LABS: Partial Thromboplastin Time 94.5 SEC (24.5-34.5)
[2023-04-20] MEDS: NOREPINEPHRINE 8 MG/250ML KIT 250 ML IV SCH ×2 (15:15→20:11)
[2023-04-20 19:20] LABS: INR 3.66 (0.9-1.15)
[2023-04-20 19:23] LABS: Partial Thromboplastin Time 90.7 SEC (24.5-34.5)
[2023-04-20] MEDS ORDERED: TPN PER PHARMACY IV NR ×9 (20:00)
[2023-04-20] MEDS: EPINEPHrine HCL 250 ML IV SCH (20:45)
[2023-04-21] VITALS (60 sets, daily range): BP systolic 81–139; BP diastolic 22–60
[2023-04-21] MEDS: ACCU-CHEK COMFORT CURVE STRIP VI SCH ×4 (00:37→12:31)
[2023-04-21] MEDS: InsuLIN REG 1unit/0.01ml Soln (100units/ml) SC SCH ×4 (00:38→12:23)
[2023-04-21 03:38] LABS: INR 3.96 (0.9-1.15)
[2023-04-21 03:43] LABS: Partial Thromboplastin Time 101.1 SEC (24.5-34.5)
[2023-04-21 04:24] LABS: Hematocrit 23.6 % (36.0-46.0); Hemoglobin 7.7 g/dL (12.2-16.2)
[2023-04-21 04:28] LABS: Mean Corpuscular Hemoglobin 30.3 pg (28.0-32.0); Mean Corpuscular Hgb Conc. 32.4 g/dL (32.0-36.0); Mean Corpuscular Volume 93.5 fL (80.0-100.0); Red Blood Cells 2.52 10^6/uL (4.0-5.20); Red Cell Distribution Width 14.5 % (11.8-14.3)
[2023-04-21 04:42] LABS: Albumin 1.5 g/dL (3.4-5.0); Calcium 6.2 mg/dL (8.5-10.1); Magnesium 3.9 mg/dL (1.6-2.6)
[2023-04-21 04:45] LABS: Bilirubin, Total 0.4 mg/dL (0.2-1.0); Total Protein 6.1 g/dL (6.4-8.2)
[2023-04-21 04:46] LABS: White Blood Cell 32.1 10^3/uL (4.4-10.8)
[2023-04-21 04:48] LABS: Basophils % (manual) 0 (0.0-2.0); Blast Cells 0; Eosinophils % (manual) 0 (0-7); Promyelocytes % 0; Reactive Lymphocytes 0
[2023-04-21] MEDS: DOPamine 1600MCG/ML D5W 250 ML IV SCH (05:15)
[2023-04-21 06:02] LABS: BUN/Creatinine Ratio 22.5 (10.0-20.0)
[2023-04-21 06:04] LABS: Phosphorus 10.2 mg/dL (2.5-4.90)
[2023-04-21] MEDS: SUCRALFATE 1 GM/10 ML ORAL SUSP GT SCH ×2 (06:20→12:15)
[2023-04-21 07:58] LABS: INR 3.38 (0.9-1.15)
[2023-04-21 08:04] LABS: Partial Thromboplastin Time 97.4 SEC (24.5-34.5)
[2023-04-21] MEDS ORDERED: ALBUMIN 25% 100 ML IV ONE (09:30)
[2023-04-21 10:24] LABS: Band Neutrophils % (manual) 6; Lymphocytes % (manual) 9 (10.0-50.0); Metamyelocytes % 2; Myelocytes % 1
[2023-04-21 10:25] LABS: Monocytes % (manual) 8 (0-12)
[2023-04-21] MEDS: HYDROCORTISONE SOD SUCC 100 MG/2ML INJ VIAL IV SCH (11:06)
[2023-04-21] MEDS: FAMOTIDINE (10MG/ML) 2ML VL IV SCH (11:06)
[2023-04-21] MEDS: CEFEPIME 1GM/ 50ML 50 ML IV SCH (11:06)
[2023-04-21] MEDS: NYSTATIN TOPICAL POWDER 15GM TOP SCH (11:08)
[2023-04-21] MEDS: INSULIN LANTUS (GLARGINE) 1 /0.01ml (100units/ml) SC SCH (11:08)
[2023-04-21] MEDS: ARGATROBAN 250 MG in SODIUM CHL 0.9% 247.5 ML IV SCH (12:31)
[2023-04-21] MEDS ORDERED: LORazepam 2MG/ML-1ML VIAL IV PRN (13:30)
[2023-04-21] MEDS ORDERED: MORPHINE SULFATE INJ 2 MG/ml SYRG IV PRN (13:30)
[2023-04-21 13:58] LABS: INR 2.66 (0.9-1.15)
[2023-04-21 14:02] LABS: Partial Thromboplastin Time 81.1 SEC (24.5-34.5)
[2023-04-21] MEDS ORDERED: SODIUM CHLORIDE IV NR ×15 (20:00)
[2023-04-21] MEDS ORDERED: SODIUM ACETATE IV NR ×15 (20:00)
[2023-04-21] MEDS ORDERED: CALCIUM GLUC IV NR ×15 (20:00)
[2023-04-21] MEDS ORDERED: [UNRECOGNIZED DRUG - OTHER] IV NR ×15 (20:00)
== END 2023-04-21 14:14 | DRG 870 ==
LOC: EDBD 18:33 → ER 18:33 → TELE 04-14 01:44 → ICU WEST 04-14 21:04
PROVIDERS: ADMIT Nurse Practitioner Family; ATTEND Internal Medicine
PROC: 5A1955Z Respiratory Ventilation, Greater than 96 Consecutive Hours (ICD-10-PCS; principal; 2023-04-14)
PROC: 0BH17EZ Insertion of Endotracheal Airway into Trachea, Via Natural or Artificial Opening (ICD-10-PCS; 2023-04-14)
PROC: 02HV33Z Insertion of Infusion Device into Superior Vena Cava, Percutaneous Approach (ICD-10-PCS; 2023-04-14)
PROC: B548ZZA Ultrasonography of Superior Vena Cava, Guidance (ICD-10-PCS; 2023-04-14)
DX: A41.9 Sepsis, unspecified organism (principal); E11.11 Type 2 diabetes mellitus with ketoacidosis with coma; E43 Unspecified severe protein-calorie malnutrition; R65.21 Severe sepsis with septic shock; N17.0 Acute kidney failure with tubular necrosis; K76.7 Hepatorenal syndrome; I21.9 Acute myocardial infarction, unspecified; K72.00 Acute and subacute hepatic failure without coma; J96.01 Acute respiratory failure with hypoxia; I50.41 Acute combined systolic (congestive) and diastolic (congestive) heart failure; J98.11 Atelectasis; I13.0 Hypertensive heart and chronic kidney disease with heart failure and stage 1 through stage 4 chronic kidney disease, or unspecified chronic kidney disease; G93.1 Anoxic brain damage, not elsewhere classified; E87.4 Mixed disorder of acid-base balance; N13.6 Pyonephrosis; Z68.41 Body mass index [BMI] 40.0-44.9, adult; I82.412 Acute embolism and thrombosis of left femoral vein; I46.9 Cardiac arrest, cause unspecified; E66.01 Morbid (severe) obesity due to excess calories; D69.6 Thrombocytopenia, unspecified; Z79.82 Long term (current) use of aspirin; E11.22 Type 2 diabetes mellitus with diabetic chronic kidney disease; E83.42 Hypomagnesemia; N18.9 Chronic kidney disease, unspecified; Z79.899 Other long term (current) drug therapy; Z87.440 Personal history of urinary (tract) infections; Z95.0 Presence of cardiac pacemaker
CPT/HCPCS: 36415; 36600; 51702; 70450; 71045; 71250; 74176; 80053; 80061; 80202; 81001; 82010; 82805; 82962; 83036; 83605; 83735; 83880; 84100; 84443; 84478; 84484; 85007; 85025; 85027; 85379; 85610; 85730; 87040; 87070; 87077; 87081; 87086; 87088; 87186; 87205; 93005; 93306; 93886; 93925; 93970; 94002; 94003; 95819; 96366; 96367; 96368; 99291; G0378; J0171; J1100; J1815; J2001; J2543; J3490; J7131; P9047